=== PATIENT | male | born 1975 | race Two or more races ===

== ENCOUNTER 2021-08-27 17:14 | Emergency (ER) | payer OTHER ==
[~2021-08-27] VITALS: Ht 180.3 cm; Wt 108.9 kg
[2021-08-27 17:42] VITALS: BP 125/65
--- NOTE | 2021-08-27 17:50 | NUR ---
BIBS FOR C/O L SHOULDER SORENESS, I FEEL MY "VEINS PULSATING" SINCE THIS MORNING. RATES PAIN 5/10. WILL CONTINUE TO MONITOR THE PATIENT.
--- NOTE | 2021-08-27 18:53 | NUR ---
X-RAY TECH AT THE BEDSIDE
[2021-08-27 18:56] LABS: BASOPHILS # (AUTO) 0.1 K/uL (0.0-0.2); BASOPHILS % (AUTO) 1.7 % (0.0-2.0); EOSINOPHILS % (AUTO) 4.7 % (0.0-6.0); HEMATOCRIT 44 % (39-51); HEMOGLOBIN 14.3 g/dL (13.5-17.5); LYMPHOCYTES # (AUTO) 1.6 K/uL (0.8-4.8); LYMPHOCYTES % (AUTO) 40.3 % (20.0-44.0); MEAN CORPUSCULAR HGB CONC 33 g/dl (31.0-36.0); MEAN CORPUSCULAR VOLUME 94 fL (80-96); MONOCYTES # (AUTO) 0.3 K/uL (0.1-1.30); MONOCYTES % (AUTO) 7.3 % (2.0-12.0); NEUTROPHILS # (AUTO) 1.8 K/uL (1.8-8.9); PLATELET COUNT (AUTO) 308 K/uL (150-450); RED BLOOD CELL COUNT(AUTO) 4.69 MIL/uL (4.5-6.0)
[2021-08-27 19:06] LABS: CALCIUM, SERUM 8.9 mg/dL (8.5-10.1); CARBON DIOXIDE 29 mmol/L (21-32); CHLORIDE 107 mmol/L (98-107); GLUCOSE 85 mg/dL (74-106); MAGNESIUM 2.3 mg/dL (1.8-2.4); SODIUM SERUM 141 mmol/L (136-145); UREA NITROGEN, BLOOD 20 mg/dL (7-18)
--- NOTE | 2021-08-27 19:16 | NUR ---
REPORT GIVEN TO NURSE WALKER FOR GUL[facility]
[2021-08-27] MEDS ORDERED: CYCL5TAB PO (19:47)
[2021-08-27] MEDS ORDERED: IBUP-1955 PO (19:47)
--- NOTE | 2021-08-27 20:02 | NUR ---
Patient discharged to home in stable condition. Written and verbal after care instructions given. Patient verbalizes understanding of instruction. Pt ambulatory with a steady gait
--- NOTE | 2021-08-27 20:07 | NUR ---
PT AWAITING PARKING ENFORCEMENT MANAGER FROM [facility]
== END 2021-08-27 20:02 | disposition home or self-care (01) ==
LOC: ER 17:14
DX: M62.838 Other muscle spasm (principal); Z79.899 Other long term (current) drug therapy
CPT/HCPCS: 36415; 71045-TC; 80048-TC; 82550-TC; 83735-TC; 84484-TC; 85025-TC; 93971-TC